=== PATIENT | female | born 1955 | race Two or more races ===

== ENCOUNTER → 2024-10-29 | Outpatient (CLI) | payer OTHER, SELFPAY ==
--- NOTE | 2024-10-29 12:00 | XR_ITS ---
Examination: MRI lumbar spine without contrast Date and time of exam: October 29, 2024 1300 hours INDICATIONS: Chronic back pain years, history lumbar fractures Technique: Multiple MRI axial and sagittal sections lumbar spine. Sagittal T2-weighted images, TR 3500, TE 118 T1 weighted transverse sections, TR 688 T8.5, T2-weighted sagittal sections T1 weighted sagittal sections TR 621, TE 30 T2 axial sections, TR 4, 190, TE 84. Findings: Chronic osteoporotic compressions, moderate, L3, L2, L1 No acute fracture Diffuse lumbar disc desiccation L5-S1 no disc protrusion L4-L5 4 mm central lumbar disc bulge extending to the left foraminal region with moderate left L4 ganglionic compression L3-L4 3 mm central lumbar disc bulge L2-L3 3 mm central lumbar disc bulge L1-L2 no disc protrusion IMPRESSION: Chronic osteoporotic compressions L3, L2, L1 L4-L5 4 mm central lumbar disc bulge extending to the left foraminal region with moderate left L4 ganglionic compression L3-L4, L2-L3 3 mm central lumbar disc bulges
== END | disposition home or self-care (01) ==
PROVIDERS: PCP Family Medicine; Referring Provider Orthopaedic Surgery; Visit Provider Orthopaedic Surgery
DX: M51.360 Other intervertebral disc degeneration, lumbar region with discogenic back pain only (principal); M81.8 Other osteoporosis without current pathological fracture; G95.20 Unspecified cord compression
CPT/HCPCS: 72148